=== PATIENT | female | born 2005 | race Caucasian/White ===

== ENCOUNTER 2025-05-25 10:32 | Emergency (ER) | payer OTHER, SELFPAY ==
[~2025-05-25] VITALS: Ht 162.6 cm; Wt 96.8 kg
[2025-05-25] MEDS ORDERED: MAG Sulf (L&D) 4 GM/100 ML 4 GM in IV 1 EA IV ONE ×2 (11:00→11:05)
[2025-05-25 11:01] LABS: VENOUS PH 7.321 UNITS (7.330-7.430)
[2025-05-25 11:04] LABS: VENOUS BASE EXCESS -9.1 (-2.0-2.0); VENOUS HCO3 15.5 MMOL/L (23.0-27.0); VENOUS O2 SATURATION 95.4 % (60.0-80.0); VENOUS PARTIAL PRESSURE CO2 30.8 mmHg (38.0-50.0); VENOUS PARTIAL PRESSURE O2 84.3 mmHg (30.0-50.0); VENOUS STANDARD HCO3 17.2 MMOL/L; VENOUS TOTAL CO2 16.5 MMOL/L (24.0-28.0)
[2025-05-25 11:05] LABS: BASO # 0.1 10^3/uL (0.0-0.2); BASO % 0.3 % (0.0-1.0); EOS # 0.1 10^3/uL (0.0-0.5); EOS % 0.5 % (0.0-3.0); LYMPH # 2.6 10^3/uL (1.5-5.0); LYMPH % 15.5 % (24.0-44.0); MONO # 0.8 10^3/uL (0.0-0.8); MONO % 4.7 % (2.0-8.0); NEUTROPHILS # 12.8 10^3/uL (1.5-8.5); NEUTROPHILS % 76.8 % (36.0-66.0); PLATELET COUNT, AUTOMATED 331 10^3/uL (150-450)
[2025-05-25] MEDS: MAG Sulf (L&D) 4 GM/100 ML 4 GM in IV 1 EA IV ONE (11:10)
[2025-05-25] MEDS: LABETALOL 100 MG/20 ML VIAL IV ONE (11:19)
[2025-05-25] MEDS: MAG SULF IV ONE (11:26)
[2025-05-25 11:28] LABS: INR 0.87
[2025-05-25 11:37] LABS: ALT/SGPT 13 U/L (7.0-40); AST/SGOT 28 U/L (<34); CALCIUM LEVEL 8.6 MG/DL (8.5-10.1); CARBON DIOXIDE LEVEL 17 MMOL/L (20-31); CHLORIDE LEVEL 103 MMOL/L (98-107); CREATININE FOR GFR 0.92 MG/DL (0.55-1.30); GLOMERULAR FILTRATION RATE > 90.0 (>60); MAGNESIUM LEVEL 2.0 MG/DL (1.8-2.4); PHOSPHORUS LEVEL 4.3 MG/DL (2.5-4.9); POTASSIUM SERUM 4.4 MMOL/L (3.5-5.1); SODIUM LEVEL 135 MMOL/L (136-145)
[2025-05-25] MEDS: MAG Sulf (OBGYN) 20GM/500ML 20,000 MG in IV 1 EA IV SCH (11:49)
[2025-05-25] MEDS ORDERED: LABETALOL 100 MG/20 ML VIAL IV PRN (11:55)
[2025-05-25] MEDS: LR 1,000 ML IV SCH (12:43)
[2025-05-25 12:45] VITALS: O2SAT 98
[2025-05-25 12:55] VITALS: BP 153/87
[2025-05-25 12:55] LABS: AMPHETAMINES LEVEL URINE NEGATIVE (NEGATIVE); BARBITURATES URINE NEGATIVE (NEGATIVE); BENZODIAZEPINES URINE NEGATIVE (NEGATIVE); CANNABINOIDS URINE NEGATIVE (NEGATIVE); COCAINE METABOLITE URINE NEGATIVE (NEGATIVE); METHADONE URINE NEGATIVE (NEGATIVE); OPIATES URINE NEGATIVE (NEGATIVE); PHENCYCLIDINE URINE NEGATIVE (NEGATIVE)
[2025-05-25 13:01] LABS: TOTAL PROTEIN,RANDOM URINE 1228.6 MG/DL (0.0-14.0)
[2025-05-25 13:01] LABS: APPEARANCE, URINE HAZY (CLEAR); BACTERIA, URINE AUTO NEGATIVE (NEGATIVE); BILIRUBIN, URINE AUTO NEGATIVE (NEGATIVE); BLOOD, URINE BLOOD 1+ (NEGATIVE); GLUCOSE, URINE (UA) AUTO NEGATIVE (NEGATIVE); KETONE, URINE AUTO NEGATIVE (NEGATIVE); LEUKOCYTE ESTERASE, URINE AUTO NEGATIVE (NEGATIVE); MUCUS, URINE SMALL (NEGATIVE); NITRITE, URINE AUTO NEGATIVE (NEGATIVE); PROTEIN, URINE AUTO 3+ mg/dL (NEGATIVE); RBC, URINE AUTO 3 /HPF (0-3); SPECIFIC GRAVITY URINE AUTO 1.019 (1.002-1.035); SQUAMOUS EPITHELIAL CELL UR AU 0 /HPF (0-6); UROBILINOGEN, URINE AUTO 0.2 mg/dL (0.0-2.0); WBC, URINE AUTO 2 /HPF (0-3)
[2025-05-25 13:06] VITALS: TEMP 99
[2025-05-25] MEDS ORDERED: PRENTAB9 PO (13:26)
[2025-05-26] MEDS ORDERED: LABE20TAB PO (07:31)
[2025-05-26] MEDS ORDERED: OXYC-517 PO (07:31)
[2025-05-26] MEDS ORDERED: ACET-683 PO (07:31)
[2025-05-26] MEDS ORDERED: IBUP600T42 PO (07:31)
== END 2025-05-25 12:53 | disposition admitted as inpatient to this hospital (09) ==
LOC: EDBD 10:32 → M ED 10:32
DX: O15.03 Eclampsia complicating pregnancy, third trimester (principal); R00.0 Tachycardia, unspecified; K21.9 Gastro-esophageal reflux disease without esophagitis; I10 Essential (primary) hypertension; Z88.0 Allergy status to penicillin; Z88.1 Allergy status to other antibiotic agents; Z3A.33 33 weeks gestation of pregnancy; Z79.1 Long term (current) use of non-steroidal anti-inflammatories (NSAID); Z79.899 Other long term (current) drug therapy

== ENCOUNTER 2025-05-25 12:54 | Inpatient (IN) | payer OTHER ==
[~2025-05-25] VITALS: Ht 162.6 cm; Wt 96.8 kg
[2025-05-25] VITALS (12 sets, daily range): BP systolic 111–142; BP diastolic 61–96; TEMP 99.1–99.7; O2SAT 92–97
[2025-05-25] MEDS ORDERED: PRENTAB9 PO (13:26)
[2025-05-25] MEDS ORDERED: HOME MED LIST COMPLETE! XX SCH (13:30)
[2025-05-25] MEDS: BICITRA 30 ML SOLN UDC PO ONE (14:05)
[2025-05-25] MEDS ORDERED: TRANEXAMIC ACID INJection 1,000 MG in NS 100 ML IV PRN (14:05)
[2025-05-25] MEDS: LABETALOL 100 MG/20 ML VIAL IV SCH (14:20)
[2025-05-25] MEDS: CLINDAMYCIN 900 MG in IV 1 EA IV ONE (14:33)
[2025-05-25] MEDS: LR 1,000 ML IV SCH (14:34)
[2025-05-25] MEDS: MAG Sulf (OBGYN) 20GM/500ML 20,000 MG in IV 1 EA IV SCH (14:34)
[2025-05-25] MEDS: GENTAMICIN 400 MG in D5W 100 ML IV ONE (14:34)
[2025-05-25 14:47] LABS: PLATELET COUNT, AUTOMATED 284 10^3/uL (150-450)
[2025-05-25] MEDS ORDERED: ONDANSETRON 4MG/2ML VIAL As Ordered ONE (15:14)
[2025-05-25] MEDS ORDERED: MORPHINE PRES-FREE INJ 10 MG/10 ML VIAL As Ordered ONE (15:14)
[2025-05-25] MEDS ORDERED: SODIUM BICARBONATE 8.4% INJ 50ML SYRINGE As Ordered ONE (15:14)
[2025-05-25] MEDS ORDERED: OXYTOCIN 30UNITS IN 0.9% NaCl 500ML IV BAG IV ONE (15:14)
[2025-05-25 15:19] LABS: CORD GAS ABE V -5.8; CORD GAS HCO3 V 20.7 MMOL/L; CORD GAS O2 SAT A < 15.0 %; CORD GAS O2 SAT V 91.0 %; CORD GAS PCO2 V 44.1 mmHg; CORD GAS PH V 7.29 UNITS; CORD GAS PO2 V 54.8 mmHg; CORD GAS SBC V 19.7 MMOL/L; CORD GAS TCO2 V 22.1 MMOL/L
[2025-05-25 15:21] LABS: CORD GAS ABE A -1.5; CORD GAS HCO3 A 25.6 MMOL/L; CORD GAS PCO2 A 52.5 mmHg; CORD GAS PH A 7.306 UNITS; CORD GAS TCO2 A 27.2 MMOL/L
[2025-05-25 15:22] LABS: CORD GAS PO2 A < 10.0 mmHg
[2025-05-25 15:41] LABS: HIV 1&2 SCREEN NEGATIVE (NEGATIVE)
[2025-05-25 15:50] LABS: HEPATITIS C VIRUS ABY INDEX < 0.02 INDEX (<0.8)
[2025-05-25] MEDS ORDERED: SIMETHICONE 80MG CHEW TAB PO PRN (16:05)
[2025-05-25] MEDS: OXYTOCIN DRIP 30 UNITS in IV 1 EA IV SCH (16:05)
[2025-05-25] MEDS ORDERED: ONDANSETRON 4MG/2ML VIAL IV PRN ×2 (16:05→16:45)
[2025-05-25] MEDS ORDERED: MORPHINE 2 MG/ML 1 ML VIAL IV PRN (16:05)
[2025-05-25] MEDS ORDERED: RHOGAM 300MCG (1500IU) INJ IM SCH (16:05)
[2025-05-25] MEDS: OXYTOCIN DRIP 30 UNITS in IV 1 EA IV PRN (16:11)
[2025-05-25] MEDS ORDERED: diphenhydrAMINE 50 MG/ML VIAL IV PRN ×2 (16:45)
[2025-05-25] MEDS ORDERED: NALOXONE INJ 0.4 MG/1 ML VIAL IV PRN ×2 (16:45)
[2025-05-25] MEDS: SLF 3 ML SYR IV SCH (16:45)
[2025-05-25] MEDS ORDERED: **NOTE PATIENT COMMENT** MISC XX SCH (16:45)
[2025-05-25] MEDS: HYDROMORPHONE HCL 0.5 MG/0.5 ML SYRINGE IV PRN (17:04)
[2025-05-25] MEDS: LABETALOL 200 MG TAB PO SCH (20:33)
[2025-05-25] MEDS: DOCUSATE SODIUM 100 MG CAPSULE PO SCH (21:00)
[2025-05-26] VITALS (19 sets, daily range): BP systolic 94–158; BP diastolic 54–96; TEMP 97.2–99.1; O2SAT 91–98
[2025-05-26] MEDS: IBUPROFEN 600 MG TAB PO PRN (00:33)
[2025-05-26] MEDS ORDERED: ACET-683 PO (07:31)
[2025-05-26] MEDS ORDERED: OXYC-517 PO (07:31)
[2025-05-26] MEDS ORDERED: LABE20TAB PO (07:31)
[2025-05-26] MEDS ORDERED: IBUP600T42 PO (07:31)
[2025-05-26 08:01] LABS: PLATELET COUNT, AUTOMATED 201 10^3/uL (150-450)
[2025-05-26] MEDS: PRENATAL VITAMINS CHEWABLE TABLET PO SCH (08:11)
[2025-05-26] MEDS: ENOXAPARIN 40 MG/0.4 ML SYRINGE (J1650 PER 10MG) SC SCH (08:16)
[2025-05-26 08:33] LABS: ALT/SGPT 13 U/L (7.0-40); AST/SGOT 40 U/L (<34); CALCIUM LEVEL 7.2 MG/DL (8.5-10.1); CARBON DIOXIDE LEVEL 23 MMOL/L (20-31); CHLORIDE LEVEL 102 MMOL/L (98-107); CREATININE FOR GFR 0.84 MG/DL (0.55-1.30); GLOMERULAR FILTRATION RATE > 90.0 (>60); MAGNESIUM LEVEL 6.6 MG/DL (1.8-2.4); POTASSIUM SERUM 4.0 MMOL/L (3.5-5.1); SODIUM LEVEL 135 MMOL/L (136-145)
[2025-05-26] MEDS: ACETAMINOPHEN 500 MG TAB PO PRN (20:50)
[2025-05-27] VITALS (9 sets, daily range): BP systolic 109–177; BP diastolic 58–98; O2SAT 94–100
[2025-05-27] MEDS: MEASLES,MUMPS,RUBELLA VACCINE INJ (MMR-II) SC.IMMUN ONE (07:37)
[2025-05-28 02:00] VITALS: BP 135/75; O2SAT 98
[2025-05-28 06:00] VITALS: BP 143/85; O2SAT 97
[2025-05-28 07:46] LABS: PLATELET COUNT, AUTOMATED 234 10^3/uL (150-450)
[2025-05-28 17:34] VITALS: BP 162/100
[2025-05-28 17:50] VITALS: BP 172/120
[2025-05-28] MEDS: NIFEdipine 10 MG CAP PO STA (17:56)
[2025-05-28 18:00] VITALS: O2SAT 97
[2025-05-28 18:24] VITALS: BP 140/82
[2025-05-29 05:00] VITALS: BP 135/93; O2SAT 98
[2025-05-29 06:06] VITALS: BP 138/82; O2SAT 97
[2025-05-29 07:21] LABS: ALT/SGPT 32 U/L (7.0-40); AST/SGOT 87 U/L (<34); CALCIUM LEVEL 8.0 MG/DL (8.5-10.1); CARBON DIOXIDE LEVEL 23 MMOL/L (20-31); CHLORIDE LEVEL 105 MMOL/L (98-107); CREATININE FOR GFR 0.82 MG/DL (0.55-1.30); GLOMERULAR FILTRATION RATE > 90.0 (>60); POTASSIUM SERUM 4.3 MMOL/L (3.5-5.1); SODIUM LEVEL 140 MMOL/L (136-145)
[2025-05-29] MEDS: TETANUS/DIPHTH/ACEL. PERTUSSIS 0.5 ML SYR IM.IMMUN ONE (09:00)
[2025-05-29 09:06] VITALS: BP 144/94; O2SAT 98
[2025-05-29 10:00] VITALS: BP 137/97; O2SAT 96
[2025-05-29] MEDS ORDERED: COLA100C5 PO (12:58)
[2025-05-29] MEDS: FLUZONE VACCINE TRI PF(25-26) 0.5ML SYRINGE IM.IMMUN ONE (14:28)
[2025-05-29] MEDS ORDERED: LABE200T5 PO (14:38)
== END 2025-05-29 15:00 | disposition home or self-care (01) | DRG 773 ==
LOC: M LDI 12:54 → M OBS 17:26
PROVIDERS: ADMIT Obstetrics & Gynecology; ATTEND Obstetrics & Gynecology
PROC: 10D00Z1 Extraction of Products of Conception, Low, Open Approach (ICD-10-PCS; principal; 2025-05-25 15:00)
DX: O14.14 Severe pre-eclampsia complicating childbirth (principal); Z37.0 Single live birth; Z3A.33 33 weeks gestation of pregnancy; Z88.0 Allergy status to penicillin; Z79.899 Other long term (current) drug therapy